=== PATIENT | female | born 1960 ===

== ENCOUNTER 2017-04-29 07:27 | Day surgery (SDC) | payer OTHER ==
[2017-04-29] VITALS (10 sets, daily range): BP systolic 105–126; BP diastolic 54–73
[~2017-04-29] VITALS: Ht 154.9 cm; Wt 53.5 kg
[2017-04-29] MEDS ORDERED: SYNTHROID75 MCG ORAL (08:10)
--- NOTE | 2017-04-29 08:48 | Pre-Procedure Note/Attestation ---
Pre-Procedure Note/Attestation Complete Prior to Procedure Planned Procedure: left Procedure Narrative: Godwin osteotomy left foot Indications for Procedure Pre-Operative Diagnosis: Hallux Abductus left Attestation I attest that I discussed the nature of the procedure; its benefits; risks and complications; and alternatives (and the risks and benefits of such alternatives ), prior to the procedure, with the patient (or the patient's legal service representative). I attest that, if there was a reasonable possibility of needing a blood transfusion, the patient (or the patient's legal service representative) was given the [facility] standardized written summary, pursuant to the [place] Blood Safety Act ([place] Health and Safety Code # 1645, as amended). I attest that I re-evaluated the patient just prior to the surgery and that there has been no change in the patient's H&P, except as documented below: FAN HU Apr 29, 2017 08:48
[2017-04-29] MEDS ORDERED: Dexamethasone 4mg/ml vial ONE (08:57)
[2017-04-29] MEDS ORDERED: Lidocaine 1% Plain 30 ml INJ ONE (08:57)
[2017-04-29] MEDS ORDERED: Bupivacaine 0.5% Inj 30 ml vial INJ ONE (08:57)
[2017-04-29] MEDS ORDERED: Propofol 200mg/20ml IV ONE (09:00)
[2017-04-29] MEDS ORDERED: Midazolam 2mg/2ml Inj ONE (09:00)
[2017-04-29] MEDS ORDERED: Sterile Water Irrig 1000ml IRRIG ONE (09:00)
[2017-04-29] MEDS ORDERED: NS Irrig 1000ml ONE (09:00)
[2017-04-29] MEDS ORDERED: LR 1000ml ONE (09:00)
[2017-04-29] MEDS ORDERED: fentaNYL 100 mcg/2 mL IV ONE (09:00)
--- NOTE | 2017-04-29 09:39 | Anethesia Preoperative Eval ---
Anesthesia Pre-op PMH/ROS General Date of Evaluation: Apr 29, 2017 Time of Evaluation: 09:05 Anesthesiologist: Tania ASA Score: ASA 2 Mallampati Score Class I : Soft palate, uvula, fauces, pillars visible Class II: Soft palate, uvula, fauces visible Class III: Soft palate, base of uvula visible Class IV: Only hard plate visible Mallampati Classification: Class II Surgeon: Charles Diagnosis: L foot deformity Surgical Procedure: L foot osteotomy Anesthesia History: PONV Family History: no anesthesia problems Allergies: Coded Allergies: ASPIRIN (Verified Allergy, Severe, 04/28/17) TONGUE,EYES AND THROAT SWELLS UP BACITRACIN (Verified Allergy, Mild, 04/28/17) SKIN TURNS RED WITH YELLOW BUBBLES SULFA (SULFONAMIDE ANTIBIOTICS) (Verified Allergy, Mild, 04/28/17) SKIN RASH Uncoded Allergies: ANTI-INFLAMMATORY MEDS (Allergy, Mild, 04/28/17) EYES SWELLS UP X 3 DAYS ANESTHESIA (Adverse Reaction, Severe, 04/29/17) N/V Medications: see eMAR Past Medical History Cardiovascular: Denies: HTN, CAD, [place], valve dz, arrhythmia, other Pulmonary: Denies: asthma, COPD, GANGA, other Gastrointestinal/Genitourinary: Reports: GERD - mild, Denies: CRI, ESRD, other Neurologic/Psychiatric: Denies: dementia, CVA, depression/anxiety, TIA, other Endocrine: Reports: hypothyroidism, Denies: DM, steroids, other HEENT: Denies: cataract (L), cataract (R), glaucoma, [place] (L), [place] (R), other Hematology/Immune: Denies: anemia, DVT, bleeding disorder, other PMH Narrative: as above PSxH Narrative: L foot bunionectomy Anesthesia Pre-op Phys. Exam Physician Exam Last Vital Signs Date Time Temp Pulse Resp B/P (MAP) Pulse Ox O2 Delivery O2 Flow Rate FiO2 04/29/17 08:05 97.3 67 17 126/69 98 Room Air Constitutional: NAD Neurologic: CN 2-12 intact Cardiovascular: RRR Respiratory: CTA Gastrointestinal: S/NT/ND Airway Exam Mallampati Score: Class II MO: full Neck: flexible ROM: full Teeth: intact Dentures: no upper, no lower Anesthesia Pre-op A/P Labs see chart Studies Pre-op Studies: EKG - NSR Risk Assessment & Plan Assessment: ASA 2 Plan: MAC with ankle block by surgeon Status Change Before Surgery: No Pre-Antibiotics Drug: Ancef 1 gr. Given Within 1 Hr of Incision: Yes Time Given: 09:15 NATANAEL NIXON M.D. Apr 29, 2017 09:39
[2017-04-29] MEDS ORDERED: LR 1000ml 1,000 ML IVLG SCH (09:51)
[2017-04-29] MEDS ORDERED: Metoclopramide 10mg/2ml Inj IVP PRN (10:00)
[2017-04-29] MEDS ORDERED: Hydromorphone 0.5mg/0.5ml inj IVP PRN (10:00)
[2017-04-29] MEDS ORDERED: DiphenhydrAMINE 50mg/ml Inj IVP PRN (10:00)
--- NOTE | 2017-04-29 10:05 | Brief Operative Note ---
Immediate Post Operative Note Operative Note Pre-op Diagnosis: Hallux Abductus left Procedure: Godwin osteotomy with 8mm staple fixation Post-op Diagnosis: same as pre-op Surgeon: Charles Anesthesiologist: Tania Anesthesia: MAC Specimen: none Complications: none Condition: stable Fluids: 50 Estimated Blood Loss: none Drains: none Implant(s) used?: Yes FAN HU Apr 29, 2017 10:05
--- NOTE | 2017-04-29 11:37 | Immediate Post-Op Evaluation ---
Immediate Post-Op Evalulation Immediate Post-Op Evalulation Procedure: L foot osteotomy Date of Evaluation: Apr 29, 2017 Time of Evaluation: 10:05 IV Fluids: 800 Blood Products: none Estimated Blood Loss: min Urinary Output: none Blood Pressure Systolic: 104 Blood Pressure Diastolic: 56 Pulse Rate: 72 Respiratory Rate: 20 O2 Sat by Pulse Oximetry: 98 Temperature (Fahrenheit): 97.4 Pain Score (1-10): 1 Nausea: No Vomiting: No Complications none Patient Status: awake, patent, none Hydration Status: adequate NATANAEL NIXON M.D. Apr 29, 2017 11:37
--- NOTE | 2017-04-29 11:41 | 48 Hour Post Anesthesia Eval ---
Post Anesthesia Evaluation Procedure: L foot osteotomy Date of Evaluation: Apr 29, 2017 Time of Evaluation: 11:40 Blood Pressure Systolic: 105 0: 58 Pulse Rate: 64 Respiratory Rate: 20 Temperature (Fahrenheit): 97.8 O2 Sat by Pulse Oximetry: 99 Airway: patent Nausea: No Vomiting: No Pain Intensity: 2 Hydration Status: adequate Cardiopulmonary Status: stable Mental Status/LOC: patient returned to baseline Follow-up Care/Observations: n/a Post-Anesthesia Complications: none Follow-up care needed: ready to discharge NATANAEL NIXON M.D. Apr 29, 2017 11:41
--- NOTE | 2017-04-29 14:33 | Diagnostic Imaging Report ---
Indication: POST-OP pain, postsurgery for hallux abductus Technique: 3 views left foot Comparison: None Findings: Patient is status post osteotomies of the first metatarsal and first proximal phalanx, as well as possible bunionectomy. Surgical hardware is seen producing both. Air within the medial soft tissues presumably relates to the recent surgical exposure. There is mild metatarsus adductus. The joint spaces are preserved. No acute fractures or dislocations Impression: Post surgical changes of the left foot, as described. No unusual features
--- NOTE | 2017-04-29 15:15 | Operative Note - Dictated ---
DATE OF OPERATION: 04/29/2017 SURGEON: Luis Soto D.P.M. ANESTHESIOLOGIST: Jude Marin M.D. ANESTHESIA: Local standby. PREOPERATIVE DIAGNOSIS: Hallux abductus, left foot. POSTOPERATIVE DIAGNOSIS: Hallux abductus, left foot. PROCEDURE PERFORMED: Godwin osteotomy, left hallux with 8 mm staple fixation. DESCRIPTION OF THE OPERATION: The patient was brought to the operating room and was placed on the operating room table in the supine position. Intravenous sedation was administered by the anesthesiologist. Local anesthesia consisting of 0.5% Marcaine plain total of 18 mL was administered to the left hallux. An ankle tourniquet was applied to the left lower extremity. The foot was prepped and draped in usual sterile manner. An Esmarch bandage was utilized to exsanguinate the blood and the left ankle tourniquet was inflated to 250 mmHg. Attention was directed to the medial aspect of the left hallux where an approximately 4 to 5 cm linear skin incision was centered over the proximal phalanx. The incision was deepened utilizing sharp and blunt dissection with care being taken to cauterize and ligate all bleeders. Some scarring proximally was noted from the prior bunionectomy at the level of the proximal phalanx. The periosteum was reflected dorsally and plantarly to expose the shaft of the proximal phalanx. At this point, a sagittal saw was utilized to remove a medial wedge from the proximal phalanx mid shaft. The lateral cortex was left intact and the osteotomy was reduced and two guide holes were drilled into the bone just distal and proximal to the osteotomy and in the reduced position an 8 x 8 mm staple was inserted into the drill holes. The osteotomy was stable and the hallux appeared to be in a rectus position. At this point, the wound was flushed utilizing sterile saline. The periosteum was reapproximated utilizing 4-0 Vicryl in a simple interrupted type stitch. The subcutaneous tissue was then reapproximated utilizing 4-0 Vicryl in a buried knot type stitch. The skin was then reapproximated utilizing 5-0 nylon in a simple interrupted type stitch. The wound was dressed utilizing an Adaptic 4 x 4 gauze and 3 inch Kyle. Left ankle tourniquet was deflated and vascular supply was noted to all digits left foot. The patient tolerated the procedure well and left the operating room to recovery room with all vital signs stable. Luis Soto D.P.M. DR: Winsome JOB#: [id number] CC:
--- NOTE | 2017-04-29 15:45 | History and Physical Report ---
DATE OF ADMISSION: 04/29/2017 PODIATRIC HISTORY AND PHYSICAL HISTORY OF PRESENT ILLNESS: This is a 56-year-old white female who is admitted today for an osteotomy of her left great toe. The patient underwent a bunionectomy a little over two years ago on her left foot, which left her hallux in position, which was irritating her second toe. The patient was displeased with the results and came for consultation with me in December of 2016. The patient was consulted on straightening the toe and she elected to proceed with the surgery. PAST MEDICAL HISTORY: Remarkable for Shakira's disease and as noted earlier, she underwent bunionectomy in October 2014 and also underwent bladder lift earlier this year. MEDICATION: Synthroid. ALLERGIES: The patient is allergic to sulfa, nonsteroidal anti-inflammatory, and topical antibiotic. PODIATRIC EXAMINATION: VASCULAR: The dorsalis pedis and posterior tibial arteries are equally palpable measuring 2/4 bilaterally. The capillary filling time is less than 3 seconds to all digits bilaterally. Homans sign is negative. No varicosities are noted of bilateral lower extremities. NEUROLOGICAL EXAMINATION: Reveals intact reflexes, Achilles and patellar measuring 2/4 bilaterally. The sensation, proprioception, and vibration sensation are all intact of bilateral lower extremities. Babinski is negative. Clonus is absent in bilateral lower extremities. MUSCULOSKELETAL EXAMINATION: Reveals the hallux, which is abutting the second digit on the left foot. There are semi reducible hammertoe deformities of digits two through five bilaterally. Range of motion of all the joints is full and pain-free. No other structural deformities are noted bilaterally. DERMATOLOGICAL EXAMINATION: Reveals scars from prior surgery. All nails are present and healthy. No wounds, ulcers, or other dermatological conditions are noted in bilateral lower extremities. ASSESSMENT: Hallux abductus, left. PLAN: The patient is admitted today for an Godwin osteotomy of her left hallux. Postoperative instructions were given. Risks, complications, and alternatives discussed with the patient again. Postoperative medication was dispensed to the patient. The patient elected to proceed with surgery. Luis Soto D.P.M. DR: Kamryn JOB#: [id number] CC:
== END 2017-04-29 11:50 | disposition home or self-care (01) ==
LOC: SUR 07:27
DX: M20.12 Hallux valgus (acquired), left foot (principal); Z88.2 Allergy status to sulfonamides; Z88.8 Allergy status to other drugs, medicaments and biological substances; Z88.6 Allergy status to analgesic agent; K21.9 Gastro-esophageal reflux disease without esophagitis; E03.9 Hypothyroidism, unspecified
CPT/HCPCS: 28296; 73630; J0690; J1100; J2250; J2405; J2704; J3010; J3490; J7120; 94003; 94150